=== PATIENT | male | born 1980 | race Caucasian/White ===

== ENCOUNTER 2016-10-12 10:21 | Emergency (ER) | payer OTHER ==
[~2016-10-12] VITALS: Ht 175.3 cm; Wt 83.9 kg
[~2016-10-12 10:21] MED LIST: CIPR500T78 PO; FAMO-119 PO; HYDR-2941 PO; OMEP20TA7 PO; PANT40TA2 PO; PHEN200T27 PO; SUCR1TAB36 PO; SULF1TAB35 PO; TRAM50TA2 PO
--- OUTSIDE RECORDS SUMMARY | 2016-10-12 10:29 | XMS REPORT | Continuity of Care Document ---
Author Author [facility] Organization [facility] Address Unknown Phone Unavailable Care Team Providers Care Marketing Manager Health Communications Name Role Phone NO, LOCAL PHYSICIAN PCP Unavailable Insurance Providers Payer Name Policy Number Subscriber Name Relationship R [id number] Hossein Mckeon 18 Self / Same As Patient Advance Directives Directive Response Recorded Date/Time Advance Directives No 08/01/14 3:48pm Health Care Power of General Office Associate No 08/01/14 3:48pm Organ Donor Yes 08/01/14 3:48pm Resuscitation Status Full Code 08/01/14 3:48pm Problems Medical Problems Problem Onset Date Status Lymphadenopathy, mesenteric Unknown Active Renal colic Unknown Active Dysuria Unknown Active Volume depletion Unknown Active Medications Medication Dose Route Sig Days/Qty Instructions Order Date Discontinued Date Status Hydrocodone Bit/Acetaminophen 1 Each PO NEEDED FOR PAIN 07/11/12 Discontinued Ciprofloxacin HCl 500 Mg PO TWICE A DAY 20 Qty 08/01/14 Active Phenazopyridine HCl 1 Each PO TID PRN PRN PAIN 14 Qty 08/01/14 Active Tramadol Hcl 50 Mg PO EVERY 4HRS PRN PAIN 14 Qty 08/01/14 Active Social History Social History Problem Response Recorded Date/Time Alcohol Use Denies Use 08/01/2014 3:48pm Recreational Drug Use No 08/01/2014 3:48pm Recent Foreign Travel No 08/01/2014 3:46pm Smoking Status Current Everyday Smoker 08/01/2014 3:48pm Query Response Start Date Stop Date Smoking Status Current Everyday Smoker Hospital Discharge Instructions No hospital discharge instructions. Plan of Care No plan of care. Functional Status No functional status results. Allergies, Adverse Reactions, Alerts Allergen Type Severity Reaction Status Last Updated Cephalexin Allergy Active 07/05/10 KETEC Allergy Mild Active 07/05/10 Immunizations No immunization records. Vital Signs Acute Vital Signs Vital Response Date/Time Temperature (Fahrenheit) 98.3 degrees F (97.6 - 99.5) Temperature (Calculated Celsius) 36.76105 degrees C (36.4 - 37.5) Temperature Source Tympanic Pulse Rate (adult) 78 bpm (60 - 90) Respiratory Rate 18 bpm (12 - 24) O2 Sat by Pulse Oximetry 99 % (88 - 100) Blood Pressure 138/96 mm Hg Pain Pain Intensity 0 Height (Feet) 6 feet Height (Calculated Centimeters) 182.046083 cm Weight (Pounds) 165 pounds Weight (Calculated Kilograms) 74.277533 kilograms Height 6 ft 0 in Weight 165 lb Body Mass Index 22.4 kg/m^2 Results Laboratory Results Test Name Result Units Flags Reference Collection Date/Time Result Date/ Time Comments White Blood Count 6.3 10^3/uL 4.3-11.0 08/01/2014 4:55pm 08/01/2014 5: 09pm Red Blood Count 4.53 10^6/uL 4.35-5.85 08/01/2014 4:55pm 08/01/2014 5: 09pm Hemoglobin 14.1 G/DL 13.3-17.7 08/01/2014 4:55pm 08/01/2014 5:09pm Hematocrit 41 % 40-54 08/01/2014 4:55pm 08/01/2014 5:09pm Mean Corpuscular Volume 90 FL 80-99 08/01/2014 4:55pm 08/01/2014 5: 09pm Mean Corpuscular Hemoglobin 31 PG 25-34 08/01/2014 4:55pm 08/01/2014 5: 09pm Mean Corpuscular Hemoglobin Concent 35 G/DL 32-36 08/01/2014 4:55pm 5:09pm Red Cell Distribution Width 12.2 % 10.0-14.5 08/01/2014 4:55pm 2013 5:09pm Platelet Count 224 10^3/uL 130-400 08/01/2014 4:55pm 08/01/2014 5:09pm Mean Platelet Volume 9.5 FL 7.4-10.4 08/01/2014 4:55pm 08/01/2014 5: 09pm Neutrophils (%) (Auto) 46 % 42-75 08/01/2014 4:55pm 08/01/2014 5:09pm Lymphocytes (%) (Auto) 42 % 12-44 08/01/2014 4:55pm 08/01/2014 5:09pm Monocytes (%) (Auto) 10 % 0-12 08/01/2014 4:55pm 08/01/2014 5:09pm Eosinophils (%) (Auto) 2 % 0-10 08/01/2014 4:55pm 08/01/2014 5:09pm Basophils (%) (Auto) 1 % 0-10 08/01/2014 4:55pm 08/01/2014 5:09pm Neutrophils # (Auto) 2.9 X 10^3 1.8-7.8 08/01/2014 4:55pm 08/01/2014 5: 09pm Lymphocytes # (Auto) 2.6 X 10^3 1.0-4.0 08/01/2014 4:55pm 08/01/2014 5: 09pm Monocytes # (Auto) 0.6 X 10^3 0.0-1.0 08/01/2014 4:55pm 08/01/2014 5: 09pm Eosinophils # (Auto) 0.1 10^3/uL 0.0-0.3 08/01/2014 4:55pm 08/01/2014 5 :09pm Basophils # (Auto) 0.1 10^3/uL 0.0-0.1 08/01/2014 4:55pm 08/01/2014 5: 09pm Urine Color YELLOW 08/01/2014 4:10pm 08/01/2014 4:26pm Urine Clarity CLEAR 08/01/2014 4:10pm 08/01/2014 4:26pm Urine pH 5 5-9 08/01/2014 4:10pm 08/01/2014 4:26pm Urine Specific Kimball 1.025 * 1.016-1.022 08/01/2014 4:10pm 2013 4:26pm Urine Protein 1+ * NEGATIVE 08/01/2014 4:1008/01/2014 4:26pm Urine Glucose (UA) NEGATIVE NEGATIVE 08/01/2014 4:10pm 08/01/2014 4: 26pm Urine RBC (Auto) 1+ * NEGATIVE 08/01/2014 4:10pm 08/01/2014 4:26pm Urine Ketones 1+ * NEGATIVE 08/01/2014 4:10pm 08/01/2014 4:26pm Urine Nitrite NEGATIVE NEGATIVE 08/01/2014 4:10pm 08/01/2014 4:26pm Urine Bilirubin 1+ * NEGATIVE 08/01/2014 4:10pm 08/01/2014 4:26pm ICTOTEST NEGATIVE Urine Urobilinogen 1 MG/DL NORMAL 08/01/2014 4:10pm 08/01/2014 4:26pm Urine Leukocyte Esterase 1+ * NEGATIVE 08/01/2014 4:10pm 08/01/2014 4: 26pm Urine RBC 2-5 /HPF * 08/01/2014 4:10pm 08/01/2014 4:26pm Urine WBC RARE /HPF 08/01/2014 4:10pm 08/01/2014 4:26pm Urine Bacteria NEGATIVE /HPF 08/01/2014 4:10pm 08/01/2014 4:26pm Urine Crystals NONE /LPF 08/01/2014 4:10pm 08/01/2014 4:26pm Urine Casts NONE /LPF 08/01/2014 4:10pm 08/01/2014 4:26pm Urine Mucus LARGE /LPF * 08/01/2014 4:10pm 08/01/2014 4:26pm Urine Culture Indicated NO 08/01/2014 4:1008/01/2014 4:26pm Sodium Level 142 MMOL/L 135-145 08/01/2014 4:55pm 08/01/2014 5:31pm Potassium Level 4.0 MMOL/L 3.6-5.0 08/01/2014 4:55pm 08/01/2014 5:31pm Chloride Level 107 MMOL/L 98-107 08/01/2014 4:55pm 08/01/2014 5:31pm Carbon Dioxide Level 24 MMOL/L 21-32 08/01/2014 4:55pm 08/01/2014 5: 31pm Blood Urea Nitrogen 11 MG/DL 7-18 08/01/2014 4:55pm 08/01/2014 5:31pm Creatinine 1.02 MG/DL 0.60-1.30 08/01/2014 4:55pm 08/01/2014 5:31pm BUN/Creatinine Ratio 08/01/2014 4:55pm 08/01/2014 5:31pm Estimat Glomerular Filtration Rate > 60 08/01/2014 4:55pm 2013 5:31pm GFR INTERPRETIVE DATA UNITS FOR ESTIMATED GFR (eGFR): mL/min/1.73 M2 REFERENCE RANGE FOR ESTIMATED GFR (eGFR) eGFR NORMAL eGFR >60 MODERATELY DECREASED eGFR 30-59 SEVERLY DECREASED eGFR 15-29 KIDNEY FAILURE <15 (OR DIALYSIS) Glucose Level 99 MG/DL 70-105 08/01/2014 4:55pm 08/01/2014 5:31pm Calcium Level 8.7 MG/DL 8.5-10.1 08/01/2014 4:55pm 08/01/2014 5:31pm Total Bilirubin 0.8 MG/DL 0.1-1.0 08/01/2014 4:55pm 08/01/2014 5:31pm Alkaline Phosphatase 74 U/L 40-136 08/01/2014 4:55pm 08/01/2014 5:31pm Aspartate Amino Transf (AST/SGOT) 25 U/L 5-34 08/01/2014 4:55pm 2013 5:31pm Alanine Aminotransferase (ALT/SGPT) 15 U/L 0-55 08/01/2014 4:55pm 08/01 5:31pm Total Protein 6.4 G/DL 6.4-8.2 08/01/2014 4:55pm 08/01/2014 5:31pm Albumin 3.9 G/DL 3.2-4.5 08/01/2014 4:55pm 08/01/2014 5:31pm Procedures No known history of procedures. Encounters Encounter Location Date/Time Departed Emergency Room [facility] 08/01/14 3:42pm Recent Diagnosis
--- NOTE | 2016-10-12 10:43 | ED EENT ---
History of Present Illness General Stated Complaint: SORE THROAT KNOTS IN NECK Source: patient Exam Limitations: no limitations History of Present Illness Time seen by provider: 10:41 Initial Comments To ER with "knots" on his neck and sore throat. He states that the knots have been there for 6-8 months at the angle of the jaw but they've not been tender until about 2 weeks ago. He has seen his regular doctor and was given a 10 day course of antibiotics which external med history shows to be Augmentin. Denies fevers. Does report pain with swallowing. Timing/Duration: gradual Severity: moderate Location: throat Prearrival Treatment: no prearrival treatment Associated Symptoms: denies symptoms Allergies and Home Medications Allergies Coded Allergies: telithromycin (Verified Allergy, Severe, ANAPHYLAXIS, 12/03/15) cephalexin (Unverified Allergy, Unknown, 06/04/15) Uncoded Allergies: KETEC (Allergy, Mild, 07/05/10) Home Medications Pantoprazole Sodium 40 Mg Tablet.dr #30 40 MG PO DAILY Prescribed by: ARTURO ROJAS on 12/29/15 1005 Sucralfate 1 Gm Tablet #30 1 GM PO TID Prescribed by: ARTURO ROJAS on 12/29/15 1004 Review of Systems Constitutional: see HPINo chills, No fever Eyes: No Symptoms Reported Ears: No Symptoms Reported Nose: no symptoms reported Throat: see HPI Respiratory: no symptoms reported Cardiovascular: no symptoms reported Musculoskeletal: no symptoms reported Past Scfjyjp-Pzisom-Aexqfk Hx Patient Social History Recent Foreign Travel: No Contact w/Someone Who Travel: No Surgeries HX Surgeries: Yes Surgeries: Gallbladder Respiratory Hx Respiratory Disorders: No Cardiovascular Hx Cardiac Disorders: No Neurological Hx Neurological Disorders: No Reproductive System Hx Reproductive Disorders: No Genitourinary Hx Genitourinary Disorders: No Gastrointestinal Hx Gastrointestinal Disorders: Yes Gastrointestinal Disorders: Abdominal Hernia Musculoskeletal Hx Musculoskeletal Disorders: No Endocrine Hx Endocrine Disorders: No HEENT HX ENT Disorders: No Cancer Hx Cancer: No Psychosocial Hx Psychiatric Problems: No Integumentary HX Skin/Integumentary Disorder: No Blood Transfusions Hx Blood Disorders: No Physical Exam Vital Signs Vital Sign - Last 12Hours 10/12/16 10:51 Temp 98.8 General Appearance: WD/WN no apparent distress Eyes: bilateral eye EOMI, bilateral eye PERRL, bilateral eye normal inspection Ears: bilateral ear TM normal, bilateral ear auricle normal, bilateral ear canal normal Mouth/Throat: normal mouth inspection other (tonsillar erythema, tonsillar enlargement with exudate) Neck: lymphadenopathy (R) lymphadenopathy (L) (tender submandibular lymph nodes bilaterally) Respiratory: no respiratory distress no accessory muscle use Gastrointestinal: normal bowel sounds non tender soft Neurologic/Psychiatric: alert normal mood/affect oriented x 3 Skin: normal color warm/dry Progress/Results/Core Measures Results/Orders Lab Results Laboratory Tests Test 10/12/16 10:40 10/12/16 10:45 Range/Units Group A Streptococcus Screen POSITIVE H NEGATIVE My Orders Orders-SANTIAGO WRIGHT APRN Rapid Strep A Screen (10/12/16 10:41) Monotest (10/12/16 10:41) Cmv Igg & Igm Ab (10/12/16 10:41) Saline Lock/Iv-Start (10/12/16 10:41) Cbc With Automated Diff (10/12/16 10:41) Dexamethasone Pf Injection (Decadron Pf (10/12/16 10:45) Ketorolac Injection (Toradol Injection) (10/12/16 10:45) Medications Given in ED Current Medications Medications Dose Ordered Sig/Ai Route Start Time Stop Time Status Last Admin Dose Admin Dexamethasone Sodium Phosphate 10 mg ONCE ONCE IM 10/12/16 10:45 10/12/16 10:46 DC 10/12/16 10:52 10 MG Ketorolac Tromethamine 30 mg ONCE ONCE IVP 10/12/16 10:45 10/12/16 10:46 DC 10/12/16 10:51 30 MG Vital Signs/I&O Vital Sign - Last 12Hours 10/12/16 10:51 Temp 98.8 Departure Communication Progress Notes Since he just finished a course of Augmentin and is allergic to macrolides and cephalosporin, drug of choice will be clindamycin. Impression Impression: Primary Impression: Streptococcal sore throat Disposition: HOME, SELF-CARE Condition: Stable Departure-Patient Inst. Decision time for Depature: 11:02 Referrals: YOGI RITCHIE MD (PCP/Family) Primary Care Physician Patient Instructions: Strep Throat (DC) Add. Discharge Instructions: 1. Tylenol and Motrin for pain and fevers 2. Return to ER for any concerns 3. Antibiotics as directed Scripts Lactobacillus Combo No.10 (Probiotic)1 Each Capsule1 Each PO TID #30 CAP Prov:SANTIAGO WRIGHT APRN 10/12/16 Clindamycin HCl 300 Mg [id number] Mg PO TID 10 Days Prov:SATNIAGO WRIGHT APRN 10/12/16 Work/School Note: Work Release Form Date Seen in the Emergency Department: Oct 12, 2016 Return to Work: Oct 15, 2016 Copy Copies To 1: YOGI RITCHIE MD, PETER J APRN Oct 12, 2016 10:43
[2016-10-12] MEDS ORDERED: KETOROLAC 30 MG/ML VIAL IVP ONE (10:45)
[2016-10-12] MEDS ORDERED: DEXAMETHASONE PF 10 MG/ML (DECADRON) VIAL IM ONE (10:45)
[2016-10-12 10:57] LABS: BASOPHILS % (AUTO) 0 % (0-10); EOSINOPHILS # (AUTO) 0.1 10^3/uL (0.0-0.3); EOSINOPHILS % (AUTO) 0 % (0-10); LYMPHOCYTES # (AUTO) 1.2 X 10^3 (1.0-4.0); LYMPHOCYTES % (AUTO) 7 % (12-44); MEAN CORPUSCULAR HEMOGLOBIN 31 PG (25-34); MEAN CORPUSCULAR HGB CONC 34 G/DL (32-36); MEAN CORPUSCULAR VOLUME 91 FL (80-99); MEAN PLATELET VOLUME 9.6 FL (7.4-10.4); MONOCYTES # (AUTO) 0.9 X 10^3 (0.0-1.0); MONOCYTES % (AUTO) 6 % (0-12); NEUTROPHILS # (AUTO) 14.5 X 10^3 (1.8-7.8); NEUTROPHILS % (AUTO) 87 % (42-75); PLATELET COUNT 215 10^3/uL (130-400); RED BLOOD COUNT 4.95 10^6/uL (4.35-5.85); RED CELL DISTRIBUTION WIDTH 12.6 % (10.0-14.5); WHITE BLOOD COUNT 16.7 10^3/uL (4.3-11.0)
[2016-10-12] MEDS ORDERED: LACT1CAP72 PO (11:07)
[2016-10-12] MEDS ORDERED: CLIN300C11 PO (11:07)
[2016-10-12 11:20] VITALS: BP 122/90
[2016-10-12 11:28] LABS: LYMPHOCYTES % (MANUAL) 8 %; NEUTROPHILS % (MANUAL) 88 %; REACTIVE LYMPHOCYTES 2 %
== END 2016-10-12 11:20 | disposition home or self-care (01) ==
LOC: EDUNIT# 10:21 → ER 10:25
DX: J02.0 Streptococcal pharyngitis (principal)
CPT/HCPCS: 36415; 85007; 85027; 86308; 86644; 86645; 87430; 96372; 96374

== ENCOUNTER 2016-12-07 18:59 | Emergency (ER) | payer OTHER ==
[~2016-12-07] VITALS: Ht 185.4 cm; Wt 83.9 kg
[~2016-12-07 18:59] MED LIST changes: +CLIN300C11 PO; +LACT1CAP72 PO
[2016-12-07] MEDS ORDERED: NS 100 ML (IVPB) BAG IV ONE (20:00)
[2016-12-07] MEDS ORDERED: IOHEXOL 350 MG/ML 100 ML (OMNIPAQUE 350) VIAL IV ONE (20:00)
[2016-12-07 20:11] LABS: BASOPHILS % (AUTO) 1 % (0-10); EOSINOPHILS # (AUTO) 0.1 10^3/uL (0.0-0.3); EOSINOPHILS % (AUTO) 2 % (0-10); LYMPHOCYTES # (AUTO) 2.5 X 10^3 (1.0-4.0); LYMPHOCYTES % (AUTO) 38 % (12-44); MEAN CORPUSCULAR HEMOGLOBIN 31 PG (25-34); MEAN CORPUSCULAR HGB CONC 34 G/DL (32-36); MEAN CORPUSCULAR VOLUME 91 FL (80-99); MEAN PLATELET VOLUME 9.2 FL (7.4-10.4); MONOCYTES # (AUTO) 0.6 X 10^3 (0.0-1.0); MONOCYTES % (AUTO) 9 % (0-12); NEUTROPHILS # (AUTO) 3.3 X 10^3 (1.8-7.8); NEUTROPHILS % (AUTO) 51 % (42-75); PLATELET COUNT 251 10^3/uL (130-400); RED BLOOD COUNT 4.62 10^6/uL (4.35-5.85); RED CELL DISTRIBUTION WIDTH 12.7 % (10.0-14.5); WHITE BLOOD COUNT 6.5 10^3/uL (4.3-11.0)
[2016-12-07 20:28] LABS: ALANINE AMINOTRANSFERASE 11 U/L (0-55); ALBUMIN 3.8 G/DL (3.2-4.5); ANION GAP 9 MMOL/L (5-14); ASPARTATE AMINO TRANSFERASE 17 U/L (5-34); BILIRUBIN,TOTAL 0.4 MG/DL (0.1-1.0); BLOOD UREA NITROGEN 9 MG/DL (7-18); BUN/CREATININE RATIO 8; CALCIUM 8.8 MG/DL (8.5-10.1); CARBON DIOXIDE 23 MMOL/L (21-32); CHLORIDE 110 MMOL/L (98-107); CREATININE SERUM 1.08 MG/DL (0.60-1.30); GFR ESTIMATED > 60; GLUCOSE 117 MG/DL (70-105); POTASSIUM 4.1 MMOL/L (3.6-5.0); SODIUM 142 MMOL/L (135-145); TOTAL PROTEIN 6.2 G/DL (6.4-8.2)
--- NOTE | 2016-12-07 20:36 | Diagnostic Imaging Report ---
PROCEDURE: CT neck soft tissue with contrast. TECHNIQUE: Multiple contiguous axial images were obtained through the neck after the administration of contrast. INDICATION: Neck swelling for 8 months. COMPARISONS: CT head and face performed concurrently. FINDINGS: No cervical lymphadenopathy. Thyroid and salivary glands are normal. No abnormal soft tissue mass or cystic lesion in the neck. There is prominence of the adenoids, which can be normal in a patient of this age. The oropharynx and hypopharynx are normal. Vocal folds are symmetric. No evidence of mass lesion in the floor of the mouth. The bilateral common carotid and internal carotid arteries are widely patent throughout the neck. Bilateral vertebral arteries are also patent in the neck. Left vertebral artery is dominant. Lung apices are clear. No endoluminal lesion in the trachea. Normal regional skeleton. IMPRESSION: 1. No cervical lymphadenopathy. 2. Prominence of the adenoids and bilateral palantine tonsils, likely reactive in nature. This can be further assessed with direct visualization. Dictated by: Dictated on workstation # [id number]
--- NOTE | 2016-12-07 20:39 | Diagnostic Imaging Report ---
PROCEDURE: CT head and maxillofacial without contrast. TECHNIQUE: Multiple contiguous axial images were obtained through the head and facial bones without the use of intravenous contrast. INDICATION: Headache and facial pain x8 months. COMPARISON: CT neck performed concurrently. FINDINGS: Head: No hyperdense hemorrhage or space-occupying mass. No hydrocephalus or midline shift. Munoz-white matter differentiation is preserved. Specifically, no territorial infarct. There is no crowding of the foramen magnum by the cerebellar tonsils. Paranasal sinuses and mastoid air cells are clear. No skull fracture. Face: Bilateral temporomandibular joints are normal in alignment. Zygomatic arches are intact. Paranasal sinuses and mastoid air cells are clear. Orbits are intact. Bilateral nasal bones are normal. Globes are symmetric. No inflammatory changes in the intraorbital fat. Please see soft tissue neck for details of the visualized portions of the upper neck. IMPRESSION: 1. Normal head. 2. Normal face. Dictated by: Dictated on workstation # [id number]
[2016-12-07] MEDS ORDERED: METH4TAB PO (20:48)
--- NOTE | 2016-12-07 20:48 | ED General ---
General Chief Complaint: General Problems/Pain Stated Complaint: SOB/RIB PAIN Nursing Triage Note: pt reports swollen neck lymph nodes on and off for eight months. reports today they are causing pain. pt also reports r sided rib pain and fatigue. pt reports he has been seen multiple times for the lymph node swelling and has been prescribed various antibiotics. Nursing Sepsis Screen: No Definite Risk Source of Information: Patient History of Present Illness Time Seen by Provider: 19:40 Initial Comments PT STATES HE HAS HAD SORE, SWOLLEN GLANDS IN HIS NECK/UNDER HIS JAWS ON BOTH SIDES FOR AT LEAST 8 MONTHS WAS SEEN AT [facility] HERE A MONTH AGO AND WAS TREATED WITH ANTIBIOTICS-? AUGMENTIN ? WAS SEEN HERE 10/12/16 FOR SAME AND DX WITH STREP PHARYNGITIS. RX FOR CLINDAMYCIN PT HAS NOT FOLLOWED UP WITH ANYONE SINCE THEN UNTIL TODAY. PT STATES HE HAS NOT SEEN HIS PCP, DR. RITCHIE, AT ANY TIME FOR ANYTHING FOR ALMOST A YEAR PT STATES HE HAS AN APPOINTMENT WITH DR. ANGELA, ENT, ON 12/21/16 FOR THIS PROBLEM PT DENIES SORE THROAT DENIES DIFFICULTY SWALLOWING PT DENIES ANY MOUTH OR DENTAL PROBLEMS NO FEVER/SWEATS / CHILLS NO COUGH ALSO C/O "SHARP PAINS UNDER MY RIBS, MORE ON THE LEFT" FOR A COUPLE OF WEEKS PAIN COMES AND GOES AND IS NOT PRESENT NOW OCCASIONALLY HAS STABBING PAINS IN HIS CHEST ,BUT NOT NOW OCCASIONALLY FEELS SHORT OF BREATH OFF AND ON, USUALLY AT NIGHT. STATES HE WILL GET A SHARP PAIN AND THEN IT FEELS LIKE HE CAN'T CATCH HIS BREATH. NO NAUSEA/VOMITING/DIARRHEA NO ABDOMINAL PAIN NO CHANGE IN APPETITE--EATING AND DRINKING WELL C/O FATIGUE. NONE OF THESE SYMPTOMS ARE ANY DIFFERENT IN ANY WAY TODAY HAS NOT TAKEN ANYTHING FOR PAIN PCP: DR. RITCHIE Allergies and Home Medications Allergies Coded Allergies: telithromycin (Verified Allergy, Severe, ANAPHYLAXIS, 12/03/15) cephalexin (Unverified Allergy, Unknown, 06/04/15) Uncoded Allergies: KETEC (Allergy, Mild, 07/05/10) Home Medications Methylprednisolone 4 Mg Tab.ds.pk, 4 MG PO UD, #1 Prescribed by: LORENZO CHRISTINE on 12/07/162047 Constitutional: see HPI, No chills, No diaphoresis, No dizziness, No fever, No weight gain, No weight loss, other (FATIGUE) EENTM: see HPI, No dental problems, No ear pain, No eye pain, No hoarseness, No mouth pain, No mouth swelling, No nose congestion, No throat pain, No throat swelling Respiratory: see HPI, No cough, No dyspnea on exertion, No orthopnea, short of breath, No stridor, No wheezing Cardiovascular: see HPI, chest pain, No edema, No palpitations, No syncope, No vascular heart diseas Gastrointestinal: no symptoms reported Genitourinary: no symptoms reported Musculoskeletal: see HPI, No back pain Skin: no symptoms reported Psychiatric/Neurological: No Symptoms Reported, Denies Headache, Denies Numbness, Denies Paresthesia, Denies Seizure, Denies Tingling, Denies Tremors, Denies Weakness Hematologic/Lymphatic: See HPI, Denies Easy Bleeding, Denies Easy Bruising, Swollen Glands Immunological/Allergic: no symptoms reported Past Oigacgg-Rsujjc-Gdssta Hx Patient Social History Alcohol Use: Rarely Uses Recreational Drug Use: No Smoking Status: Current Everyday Smoker (1/2 PPD) Type Used: Cigarettes Recent Foreign Travel: No Contact w/Someone Who Travel: No Recent Infectious Disease Expo: No Recent Hopitalizations: No Surgeries HX Surgeries: Yes Surgeries: Gallbladder Respiratory Hx Respiratory Disorders: No Cardiovascular Hx Cardiac Disorders: No Neurological Hx Neurological Disorders: No Reproductive System Hx Reproductive Disorders: No Genitourinary Hx Genitourinary Disorders: No Gastrointestinal Hx Gastrointestinal Disorders: Yes Gastrointestinal Disorders: Abdominal Hernia Musculoskeletal Hx Musculoskeletal Disorders: No Endocrine Hx Endocrine Disorders: No HEENT HX ENT Disorders: No Cancer Hx Cancer: No Psychosocial Hx Psychiatric Problems: No Integumentary HX Skin/Integumentary Disorder: No Blood Transfusions Hx Blood Disorders: No Physical Exam Vital Signs Vital Sign - Last 12Hours 12/07/16 12/07/16 19:08 21:00 Temp 98.9 Pulse 76 Resp 18 B/P (MAP) 127/87 Pulse Ox 97 Capillary Refill : Less Than 3 Seconds General Appearance: No Apparent Distress, WD/WN HEENT: PERRL/EOMI, TMs Normal, Normal ENT Inspection, Pharynx Normal Neck: Full Range of Motion, Supple, Other (SMALL, SOFT BILATERAL / SYMMETRICAL , SUBMANDIBULAR NODULES, SLIGHTLY TENDER. LESS THAN 1 CM IN SIZE ( AREA OF TONSILLAR TISSUE ) . NO OTHER MASSES OR ADENOPATHY NOTED. NO SWELLING TO PAROTID OR SUBMANDIBULAR GLANDS. ) Respiratory: Chest Non Tender, Normal Breath Sounds, No Accessory Muscle Use, No Respiratory Distress Cardiovascular: Regular Rate, Rhythm, No Edema, No Gallop, No JVD, No Murmur, Normal Peripheral Pulses Gastrointestinal: Normal Bowel Sounds, No Organomegaly, No Pulsatile Mass, Non Tender, Soft Back: Normal Inspection Extremity: Normal Capillary Refill, Normal Inspection, Normal Range of Motion, Non Tender, No Pedal Edema Neurologic/Psychiatric: Alert, Oriented x3, No Motor/Sensory Deficits, Normal Mood/Affect, aix administrator II-XII Norm as Tested Skin: Normal Color, Warm/Dry, No Rash Lymphatic: No Adenopathy Progress/Results/Core Measures Results/Orders Lab Results Laboratory Tests Test 12/07/16 20:03 Range/Units White Blood Count 6.5 4.3-11.0 10^3/uL Red Blood Count 4.62 4.35-5.85 10^6/uL Hemoglobin 14.3 13.3-17.7 G/DL Hematocrit 42 40-54 % Mean Corpuscular Volume 91 80-99 FL Mean Corpuscular Hemoglobin 31 25-34 PG Mean Corpuscular Hemoglobin Concent 34 32-36 G/DL Red Cell Distribution Width 12.7 10.0-14.5 % Platelet Count 251 130-400 10^3/uL Mean Platelet Volume 9.2 7.4-10.4 FL Neutrophils (%) (Auto) 51 42-75 % Lymphocytes (%) (Auto) 38 12-44 % Monocytes (%) (Auto) 9 0-12 % Eosinophils (%) (Auto) 2 0-10 % Basophils (%) (Auto) 1 0-10 % Neutrophils # (Auto) 3.3 1.8-7.8 X 10^3 Lymphocytes # (Auto) 2.5 1.0-4.0 X 10^3 Monocytes # (Auto) 0.6 0.0-1.0 X 10^3 Eosinophils # (Auto) 0.1 0.0-0.3 10^3/uL Basophils # (Auto) 0.0 0.0-0.1 10^3/uL Sodium Level 142 135-145 MMOL/L Potassium Level 4.1 3.6-5.0 MMOL/L Chloride Level 110 H 98-107 MMOL/L Carbon Dioxide Level 23 21-32 MMOL/L Anion Gap 9 5-14 MMOL/L Blood Urea Nitrogen 9 7-18 MG/DL Creatinine 1.08 0.60-1.30 MG/DL Estimat Glomerular Filtration Rate > 60 BUN/Creatinine Ratio 8 Glucose Level 117 H 70-105 MG/DL Calcium Level 8.8 8.5-10.1 MG/DL Total Bilirubin 0.4 0.1-1.0 MG/DL Aspartate Amino Transf (AST/SGOT) 17 5-34 U/L Alanine Aminotransferase (ALT/SGPT) 11 0-55 U/L Alkaline Phosphatase 83 40-136 U/L Total Protein 6.2 L 6.4-8.2 G/DL Albumin 3.8 3.2-4.5 G/DL TSH [place] Testing 1.96 0.35-4.94 UIU/ML Monoscreen NEGATIVE NEGATIVE Group A Streptococcus Screen NEGATIVE NEGATIVE My Orders Orders - LORENZO CHRISTINE DO Saline Lock/Iv-Start (12/07/16 19:38) Cbc With Automated Diff (12/07/16 19:38) Comprehensive Metabolic Panel (12/07/16 19:38) Monotest (12/07/16 19:38) Rapid Strep A Screen (12/07/16 19:38) Thyroid Analyzer (12/07/16 19:38) Ct Neck (Soft Tissue) W (12/07/16 19:53) Ct Head/Maxillofacial Wo (12/07/16 19:53) Iohexol Injection (Omnipaque 350 Mg/Ml 1 (12/07/16 20:00) Ns (Ivpb) (Sodium Chloride 0.9% Ivpb Bag (12/07/16 20:00) Medications Given in ED Current Medications Medications Dose Ordered Sig/Ai Route Start Time Stop Time Status Last Admin Dose Admin Iohexol 75 ml ONCE ONCE IV 12/07/16 20:00 12/07/16 20:01 DC 12/07/16 20:20 75 ML Sodium Chloride 100 ml ONCE ONCE IV 12/07/16 20:00 12/07/16 20:01 DC 12/07/16 20:20 80 ML Vital Signs/I&O Vital Sign - Last 12Hours 12/07/16 12/07/16 19:08 21:00 Temp 98.9 98.4 Pulse 76 70 Resp 18 20 B/P (MAP) 127/87 Pulse Ox 97 Blood Pressure Mean: [address] HEAD/MAXILLOFACIALS--NO ACUTE PROCESS CT NECK SOFT TISSUES--NO CERVICAL ADENOPATHY, MILDLY PROMINENT TONSILS AND ADENOIDS PER RADIOLOGIST REPORTS @ 2044 Reviewed: Reviewed by Me Departure Impression Impression: Primary Impression: MILD TONSILLAR HYPERTROPHY Disposition: HOME, SELF-CARE Condition: Stable Departure-Patient Inst. Referrals: YOGI RITCHIE MD (PCP/Family) Primary Care Physician Patient Instructions: Sore Throat, Adult (DC) Add. Discharge Instructions: LOTS OF CLEAR LIQUIDS TYLENOL AND MOTRIN NEEDED FOR PAIN FOLLOW UP WITH DR. ANGELA SCHEDULED All discharge instructions reviewed with patient and/or family. Voiced understanding. Scripts Methylprednisolone (Medrol) 4 Mg Tab.ds.pk 4 MG PO UD, #1 PKG Prov: LORENZO CHRISTINE DO 12/07/16 LORENZO CHRISTINE DO Dec 07, 2016 20:48
[2016-12-07 21:00] VITALS: BP 115/72
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
== END 2016-12-07 21:00 | disposition home or self-care (01) ==
LOC: EDUNIT# 18:59 → ER 19:00
DX: J35.3 Hypertrophy of tonsils with hypertrophy of adenoids (principal); F17.210 Nicotine dependence, cigarettes, uncomplicated
CPT/HCPCS: 36415; 70450; 70486; 70491; 80053; 84443; 85025; 86308; 87430

== ENCOUNTER 2019-10-08 05:30 | Outpatient (CLI) | payer OTHER ==
[~2019-10-08] VITALS: Ht 185.5 cm; Wt 81.8 kg
[~2019-10-08 05:30] MED LIST changes: +METH4TAB PO
[2019-10-11] MEDS ORDERED: HYDR-3816 PO (08:40)
== END 2019-10-08 15:29 | disposition home or self-care (01) ==
LOC: PREOP 05:30
PROVIDERS: ATTEND Surgery
DX: Z01.818 Encounter for other preprocedural examination (principal)

== ENCOUNTER → 2020-07-17 | Outpatient (CLI) | payer OTHER ==
[~2020-07-17] MED LIST changes: +HYDR-34 PO
--- NOTE | 2020-07-17 14:29 | Diagnostic Imaging Report ---
INDICATION: Shortness of breath. Time of exam 2:15 PM Correlation is made with prior chest from 02/08/2015. The heart size is normal. The pulmonary vascularity is unremarkable. The lungs are clear. No infiltrate, effusion or pneumothorax is detected. Impression: No acute cardiopulmonary process is detected. Dictated by: Dictated on workstation # [id number]
== END ==
LOC: RAD 13:52
PROVIDERS: ATTEND Family Medicine
DX: R06.02 Shortness of breath (principal); R06.00 Dyspnea, unspecified
CPT/HCPCS: 71046

== ENCOUNTER → 2020-07-23 | Outpatient (CLI) | payer OTHER ==
[~2020-07-23] MED LIST changes: +RT-ALBUTEROL SULF 2.5 MG/3 ML PRE-MIX VIAL INH ONE
== END ==
LOC: RT 15:30
PROVIDERS: ATTEND Family Medicine
DX: R06.00 Dyspnea, unspecified (principal)
CPT/HCPCS: 94060; 94726; 94729

== ENCOUNTER 2020-08-04 10:56 | Emergency (ER) | payer OTHER ==
[~2020-08-04 10:56] MED LIST changes: -RT-ALBUTEROL SULF 2.5 MG/3 ML PRE-MIX VIAL INH ONE
== END 2020-08-04 11:47 | disposition left against medical advice (07) ==
LOC: EDUNIT# 10:56 → ER 10:58
DX: R06.02 Shortness of breath (principal); R10.9 Unspecified abdominal pain

== ENCOUNTER → 2020-10-16 | Outpatient (CLI) | payer OTHER ==
[~2020-10-16] MED LIST changes: +CATHETER FLUSH 10 ML SYR IV PRN; -CLIN300C11 PO; +CLIN300C12 PO; +HOLD METFORMIN - RECEIVED CONTRAST 20 ML VIAL IV SCH; +IOHEXOL 350 MG/ML 100 ML (OMNIPAQUE 350) VIAL IV ONE; +NS 100 ML (IVPB) BAG IV ONE
--- NOTE | 2020-10-16 10:08 | Diagnostic Imaging Report ---
PROCEDURE: CT chest with contrast only. TECHNIQUE: Multiple contiguous axial images were obtained through the chest after administration of intravenous contrast. Auto Exposure Controls were utilized during the CT exam to meet ALARA standards for radiation dose reduction. INDICATION: Cough, shortness of air, fatigue. FINDINGS: The lungs are clear. No lung mass or thoracic adenopathy. No chest effusion. No chest wall pathology. No bronchiectasis, blebs, bullous disease or air cysts. The heart and pericardium unremarkable. The thoracic aorta is patent and nonaneurysmal. Central pulmonary arterial branches normal in caliber and well opacified. The visualized upper abdomen is unremarkable. IMPRESSION: Normal CT chest. Dictated by: Dictated on workstation # [id number]
== END ==
LOC: RAD 09:15
PROVIDERS: ATTEND Nurse Practitioner Family
DX: R05 Cough (principal); R06.02 Shortness of breath; R53.83 Other fatigue
CPT/HCPCS: 71260

== ENCOUNTER → 2021-05-12 | Outpatient (CLI) | payer OTHER ==
[~2021-05-12] MED LIST changes: -CATHETER FLUSH 10 ML SYR IV PRN; -HOLD METFORMIN - RECEIVED CONTRAST 20 ML VIAL IV SCH; -IOHEXOL 350 MG/ML 100 ML (OMNIPAQUE 350) VIAL IV ONE; -NS 100 ML (IVPB) BAG IV ONE; -SULF1TAB35 PO; +SULF1TAB38 PO
--- NOTE | 2021-05-12 12:32 | Diagnostic Imaging Report ---
INDICATION: Severe cough, 2 weeks post COVID. TECHNIQUE: Two view chest 11:38 AM CORRELATION STUDY: 07/17/2020 FINDINGS: The heart size, mediastinal configuration and pulmonary vasculature are within normal limits. Patchy bilateral pulmonary infiltrates opacities noted about both lung bases left greater than right. Appears to be most pronounced posteriorly. No significant effusion. Visualized osseous structures are unremarkable. IMPRESSION: 1. Bilateral lower lobe pneumonia left greater than right. Follow-up imaging to resolution recommended. Findings are adversely changed from prior. Dictated by: Dictated on workstation # [id number]
== END ==
LOC: RAD 10:59
PROVIDERS: ATTEND Family Medicine
DX: J18.9 Pneumonia, unspecified organism (principal); Z86.16 Personal history of COVID-19
CPT/HCPCS: 71046

== ENCOUNTER 2021-05-18 12:37 | Emergency (ER) | payer SELFPAY ==
[~2021-05-18] VITALS: Ht 182.8 cm; Wt 81.6 kg
--- NOTE | 2021-05-18 13:30 | ED Respiratory ---
General Chief Complaint: COVID19 Suspect/Confirmed Stated Complaint: POST COVID - HEART RATE 48 - LOW 02 - Nursing Triage Note: PT AMB TO RM 9 WITH COMPLAINT OF LOW HEART RATE AND LOW O2. STATES HE TESTED POSITIVE FOR COVID ON April. WENT TO DR RITCHIE LAST WEEK AND DIAGNOSED WITH DOUBLE PNEUMONIA AND RECEIVED ANTIBIOTICS AND STEROIDS. REPORTS HR BEING LOW 43 AT HOME, Source: patient Exam Limitations: no limitations History of Present Illness Date Seen by Provider: May 18, 2021 Time Seen by Provider: 13:30 Allergies and Home Medications Allergies Coded Allergies: telithromycin (Verified Allergy, Severe, ANAPHYLAXIS, 12/03/15) cephalexin (Unverified Allergy, Unknown, 06/04/15) Patient Home Medication List Home Medication List Reviewed: Yes Hydrocodone Bit/Acetaminophen (HYDROcodone/APAP 7.5/325 TAB) 1 Each Tablet, 1-2 TAB PO Q4H Prescribed by: MERLE ESPOSITO on 10/11/19 0840 Past Iqfimtr-Sjcidt-Dsoxvs Hx Patient Social History Tobacco Use?: No Smokeless Tobacco Frequency: Current Everyday User Use of E-Cig and/or Vaping dev: No Substance use?: No Alcohol Use?: No Pt feels they are or have been: No Seasonal Allergies Seasonal Allergies: Yes Past Medical History Surgeries: Yes Gallbladder Respiratory: No Cardiac: No Neurological: No Reproductive Disorders: No Genitourinary: No Gastrointestinal: Yes Abdominal Hernia, Irritable Bowel Musculoskeletal: No Endocrine: No HEENT: No Cancer: No Psychosocial: No Integumentary: No Blood Disorders: No Physical Exam Vital Signs - First Documented 05/18/21 13:18 Temp 36.6 Pulse 78 Resp 18 B/P (MAP) 131/97 (108) Pulse Ox 96 O2 Delivery Room Air Capillary Refill : Less Than 3 Seconds Height: 6'1.00" Weight: 185lbs. 0.0oz. 83.677714sj; 24.00 BMI Method:Stated Focused Exam Lactate Level 05/18/21 13:10: Lactic Acid Level 1.27 Lactic Acid Level Laboratory Tests Test 05/18/21 13:10 Lactic Acid Level 1.27 MMOL/L (0.50-2.00) Progress/Results/Core Measures Suspected Sepsis SIRS Temperature: Pulse: 78 Respiratory Rate: 18 Laboratory Tests 05/18/21 13:10: White Blood Count 11.3H Blood Pressure 131 /97 Mean: 108 05/18/21 13:10: Lactic Acid Level 1.27 Laboratory Tests 05/18/21 13:10: Creatinine 1.00, INR Comment 0.9, Platelet Count 496H, Total Bilirubin 0.8 Results/Orders Lab Results Laboratory Tests Test 05/18/21 13:10 Range/Units White Blood Count 11.3 H 4.3-11.0 10^3/uL Red Blood Count 5.26 4.30-5.52 10^6/uL Hemoglobin 15.8 13.3-17.7 g/dL Hematocrit 48 40-54 % Mean Corpuscular Volume 91 80-99 fL Mean Corpuscular Hemoglobin 30 25-34 pg Mean Corpuscular Hemoglobin Concent 33 32-36 g/dL Red Cell Distribution Width 11.8 10.0-14.5 % Platelet Count 496 H 130-400 10^3/uL Mean Platelet Volume 9.1 9.0-12.2 fL Immature Granulocyte % (Auto) 6 % Neutrophils (%) (Auto) 71 42-75 % Lymphocytes (%) (Auto) 17 12-44 % Monocytes (%) (Auto) 6 0-12 % Eosinophils (%) (Auto) 0 0-10 % Basophils (%) (Auto) 0 0-10 % Neutrophils # (Auto) 8.0 H 1.8-7.8 10^3/uL Lymphocytes # (Auto) 2.0 1.0-4.0 10^3/uL Monocytes # (Auto) 0.7 0.0-1.0 10^3/uL Eosinophils # (Auto) 0.0 0.0-0.3 10^3/uL Basophils # (Auto) 0.0 0.0-0.1 10^3/uL Immature Granulocyte # (Auto) 0.6 H 0.0-0.1 10^3/uL Neutrophils % (Manual) 73 % Lymphocytes % (Manual) 21 % Monocytes % (Manual) 6 % Blood Morphology Comment NORMAL Prothrombin Time 12.8 12.2-14.7 SEC INR Comment 0.9 0.8-1.4 Activated Partial Thromboplast Time 24 24-35 SEC D-Dimer 1.90 H 0.00-0.49 UG/ML Sodium Level 139 135-145 MMOL/L Potassium Level 4.7 3.6-5.0 MMOL/L Chloride Level 101 98-107 MMOL/L Carbon Dioxide Level 30 21-32 MMOL/L Anion Gap 8 5-14 MMOL/L Blood Urea Nitrogen 16 7-18 MG/DL Creatinine 1.00 0.60-1.30 MG/DL Estimat Glomerular Filtration Rate 83 BUN/Creatinine Ratio 16 Glucose Level 98 70-105 MG/DL Lactic Acid Level 1.27 0.50-2.00 MMOL/L Calcium Level 9.6 8.5-10.1 MG/DL Corrected Calcium 9.8 8.5-10.1 MG/DL Total Bilirubin 0.8 0.1-1.0 MG/DL Aspartate Amino Transf (AST/SGOT) 33 5-34 U/L Alanine Aminotransferase (ALT/SGPT) 51 0-55 U/L Alkaline Phosphatase 91 40-136 U/L Total Protein 6.8 6.4-8.2 GM/DL Albumin 3.7 3.2-4.5 GM/DL My Orders Orders - RAGHAVENDRA WILD APRN Ekg Tracing (05/18/21 13:26) Cbc With Automated Diff (05/18/21 13:27) Comprehensive Metabolic Panel (05/18/21 13:27) Blood Culture (05/18/21 13:27) Protime With Inr (05/18/21 13:27) Partial Thromboplastin Time (05/18/21 13:27) Ed Iv/Invasive Line Start (05/18/21 13:27) Vital Signs Adult Sepsis Patie Q15M (05/18/21 13:27) O2 (05/18/21 13:27) Remove Rings In Anticipation O (05/18/21 13:27) Lactic Acid Analyzer (05/18/21 13:27) Fibrin Degradation Products (05/18/21 13:27) Manual Differential (05/18/21 13:10) Ct Angio Chest W (05/18/21 13:56) Iohexol Injection (Omnipaque 350 Mg/Ml 1 (05/18/21 14:15) Received Contrast (Hold Metformin- Contr (05/18/21 14:15) Ns (Ivpb) (Sodium Chloride 0.9% Ivpb Bag (05/18/21 14:15) Enoxaparin Injection (Lovenox Injection) (05/18/21 14:45) Medications Given in ED Current Medications Medications Dose Ordered Sig/Ai Route Start Time Stop Time Status Last Admin Dose Admin Enoxaparin Sodium 120 mg ONCE ONCE SC 05/18/21 14:45 05/18/21 14:46 DC 05/18/21 15:47 120 MG Iohexol 75 ml ONCE ONCE IV 05/18/21 14:15 05/18/21 14:20 DC 05/18/21 14:26 75 ML Sodium Chloride 100 ml ONCE ONCE IV 05/18/21 14:15 05/18/21 14:20 DC 05/18/21 14:27 100 ML Vital Signs/I&O 05/18/21 05/18/21 13:18 15:56 Temp 36.6 Pulse 78 68 Resp 18 11 B/P (MAP) 131/97 (108) 117/86 Pulse Ox 96 95 O2 Delivery Room Air Room Air Capillary Refill : Less Than 3 Seconds Blood Pressure Mean: 108 ECG Initial ECG Impression Date: May 18, 2021 Initial ECG Impression Time: 14:02 Initial ECG Rate: 68 Initial ECG Rhythm: Normal Sinus Initial ECG Intervals: Normal Initial ECG Impression: Normal Initial ECG Comparisson: No Previous ECG Available Departure Impression Primary Impression: Pneumonia Disposition: 01 HOME, SELF-CARE Condition: Improved Departure-Patient Inst. Decision time for Depature: 15:44 Referrals: YOGI RITCHIE MD (PCP/Family) Primary Care Physician Patient Instructions: Pneumonia, Adult (DC) Add. Discharge Instructions: Plan: 1. Continue antibiotics as directed and complete full course. 2. Use your incentive spirometer every 2 hours while awake. 3. Call number on outpatient order to schedule your ultrasound and holter monitor. 4. Follow up with Dr. Ritchie later this week. 5. Return to hospital for new, concerning, or worsening symptoms. All discharge instructions reviewed with patient and/or family. Voiced understanding. RAGHAVENDRA WILD SHIPPING AND RECEIVING May 18, 2021 13:30
[2021-05-18 13:35] LABS: BASOPHILS % (AUTO) 0 % (0-10); EOSINOPHILS % (AUTO) 0 % (0-10); HEMATOCRIT 48 % (40-54); HEMOGLOBIN 15.8 g/dL (13.3-17.7); LYMPHOCYTES % (AUTO) 17 % (12-44); MEAN CORPUSCULAR HEMOGLOBIN 30 pg (25-34); MEAN CORPUSCULAR HGB CONC 33 g/dL (32-36); MEAN CORPUSCULAR VOLUME 91 fL (80-99); MEAN PLATELET VOLUME 9.1 fL (9.0-12.2); MONOCYTES # (AUTO) 0.7 10^3/uL (0.0-1.0); MONOCYTES % (AUTO) 6 % (0-12); NEUTROPHILS % (AUTO) 71 % (42-75); PLATELET COUNT 496 10^3/uL (130-400); WHITE BLOOD COUNT 11.3 10^3/uL (4.3-11.0)
[2021-05-18 13:43] LABS: FIBRIN DEGRADATION PRODUCTS 1.9 UG/ML (0.00-0.49); INR 0.9 (0.8-1.4); PROTHROMBIN TIME PATIENT 12.8 SEC (12.2-14.7)
[2021-05-18 13:44] LABS: ALBUMIN 3.7 GM/DL (3.2-4.5)
[2021-05-18 13:45] LABS: POTASSIUM 4.7 MMOL/L (3.6-5.0)
[2021-05-18 13:46] LABS: CALCIUM 9.6 MG/DL (8.5-10.1)
[2021-05-18 13:47] LABS: TOTAL PROTEIN 6.8 GM/DL (6.4-8.2)
[2021-05-18 13:49] LABS: BILIRUBIN,TOTAL 0.8 MG/DL (0.1-1.0)
[2021-05-18 14:01] LABS: LYMPHOCYTES % (MANUAL) 21 %; MONOCYTES % (MANUAL) 6 %; NEUTROPHILS % (MANUAL) 73 %
[2021-05-18 14:02] LABS: RBC MORPH NORMAL
[2021-05-18] MEDS ORDERED: NS 100 ML (IVPB) BAG IV ONE (14:15)
[2021-05-18] MEDS ORDERED: HOLD METFORMIN - RECEIVED CONTRAST 20 ML VIAL IV SCH (14:15)
[2021-05-18] MEDS ORDERED: IOHEXOL 350 MG/ML 100 ML (OMNIPAQUE 350) VIAL IV ONE (14:15)
--- NOTE | 2021-05-18 14:29 | Diagnostic Imaging Report ---
PROCEDURE: CT angiography of the chest with contrast. TECHNIQUE: Multiple contiguous axial images were obtained through the chest after uneventful bolus administration of intravenous contrast. 3D reconstructed CTA MIP acquisitions were also performed. Auto Exposure Controls were utilized during the CT exam to meet ALARA standards for radiation dose reduction. INDICATION: Bradycardia. Hypoxia. Covid positive. Elevated D-dimer. COMPARISON: 10/16/2020. FINDINGS: This helical CT pulmonary angiogram is diagnostic to the subsegmental level branches of the pulmonary artery and demonstrates no pulmonary emboli. The heart and great vessels are unremarkable. There is no pericardial effusion. There is no axillary, mediastinal, or hilar adenopathy. Small amount of opacities are seen in the dependent lungs bilaterally. No central endobronchial obstructing lesions. No pulmonary mass. No pleural effusion or pneumothorax. Osseous structures appear normal. Limited views of the upper abdomen are unremarkable. IMPRESSION: 1. No acute pulmonary embolus. 2. Small amount of opacities in the dependent lungs bilaterally, likely representing the patient's history of Covid infection. No pleural effusion or mass. Dictated by: Dictated on workstation # [id number]
[2021-05-18] MEDS ORDERED: ENOXAPARIN 60 MG/0.6 ML (LOVENOX) SYR SC ONE (14:45)
[2021-05-18 15:56] VITALS: BP 117/86
== END 2021-05-18 15:56 | disposition home or self-care (01) ==
LOC: EDUNIT# 12:37 → ER 12:42
DX: J18.9 Pneumonia, unspecified organism (principal); F17.200 Nicotine dependence, unspecified, uncomplicated; Z86.16 Personal history of COVID-19
CPT/HCPCS: 36415; 71275; 80053; 83605; 85007; 85027; 85379; 85610; 85730; 87040; 93005

== ENCOUNTER → 2021-05-19 | Outpatient (CLI) | payer SELFPAY | LOC: CARD 11:49 | PROVIDERS: ATTEND Emergency Medicine | DX: R00.1 Bradycardia, unspecified (principal); R10.12 Left upper quadrant pain; R79.1 Abnormal coagulation profile; Z86.16 Personal history of COVID-19 | CPT/HCPCS: 93225; 93226 ==

== ENCOUNTER 2021-06-03 09:52 | Outpatient (CLI) | payer OTHER | END 2021-06-03 10:15 | LOC: SLEEP 09:52 | PROVIDERS: ATTEND Family Medicine | DX: G47.33 Obstructive sleep apnea (adult) (pediatric) (principal) | CPT/HCPCS: G0399 ==

== ENCOUNTER → 2021-06-26 | Outpatient (CLI) | payer SELFPAY | LOC: LABNPT 08:00 | PROVIDERS: ATTEND Family Medicine | DX: Z01.812 Encounter for preprocedural laboratory examination (principal); Z20.822 Contact with and (suspected) exposure to COVID-19 | CPT/HCPCS: 87635 ==

== ENCOUNTER 2021-06-27 19:49 | Outpatient (CLI) | payer OTHER | END 2021-06-28 07:04 | disposition home or self-care (01) | LOC: SLEEP 19:49 | PROVIDERS: ATTEND Family Medicine | DX: G47.33 Obstructive sleep apnea (adult) (pediatric) (principal) | CPT/HCPCS: 87635; 95811 ==

== ENCOUNTER 2021-07-07 13:39 | Emergency (ER) | payer OTHER ==
[~2021-07-07] VITALS: Ht 182 cm; Wt 84.0 kg
[~2021-07-07 13:39] MED LIST changes: +CLIN-144 PO; -CLIN300C12 PO
--- OUTSIDE RECORDS SUMMARY | 2021-07-07 13:45 | XMS REPORT | Clinical Summary ---
Author Author [facility] Organization [facility] Address Unknown Phone Unavailable Care Team Providers Care Car Filler Name Role Phone Jarett Markham MD PCP Source Comments Some departments are not documenting in the electronic medical record. If you d o not see the information that you expected, contact Release of Information in [facility] [employer] [place] Information Management department at [phone] for further assistan ce in locating additional records.[facility] Allergies Comments Active Allergy Reactions Severity Noted Date Cephalexin NAUSEA ONLY Low 12/26/2020 Medications End Date Status Medication Sig Dispensed Refills Start Date Active albuterol sulfate (PROAIR Inhale 2 0 HFA) 90 mcg/actuation HFA puffs by aerosol inhaler mouth into the lungs every 6 hours as needed for Wheezing or Shortness of Breath. Shake well before use. Active Problems Problem Noted Date Industrial fumes exposure 01/14/2021 Surgical History Surgery Date Site/Laterality Comments GALLBLADDER SURGERY ABDOMINAL HERNIA REPAIR Medical History Medical History Date Comments Bronchitis Family History Medical History Relation Name Comments Coronary Artery Disease Maternal Grandfather Relation Name Status Comments Maternal Grandfather Social History Date Tobacco Use Types Packs/Day Years Used Quit: 09/2018 Former Smoker Cigarettes 0.5 10 Smokeless Tobacco: Chew Current User Tobacco Cessation: Ready to Quit: Yes; C ounseling Given: Yes Comments Alcohol Use Standard Drinks/Week Yes 0 (1 standard drink = 0.6 o z pure alcohol) Sex Assigned at Date Recorded Not on file Last Filed Vital Signs Reading Time Taken Comments Vital Sign 133/71 12/26/2020 12:39 PM CDT Blood Pressure 75 12/26/2020 12:39 PM CDT Pulse 36.7 C (98.1 F) 12/26/2020 12:39 PM CDT Temperature 20 12/26/2020 12:39 PM CDT Respiratory Rate 100% 12/26/2020 12:39 PM CDT Oxygen Saturation - - Inhaled Oxygen Concentration 80.3 kg (177 lb 1.6 oz) 12/26/2020 12:39 PM CDT Weight 180.3 cm (5' 11") 12/26/2020 12:39 PM CDT Height 24.7 12/26/2020 12:39 PM CDT Body Mass Index Plan of Treatment Health Maintenance Due Date Last Done Comments HIV SCREENING 1996 DTAP/TDAP VACCINES (1 - 1999 Tdap) HEPATITIS C SCREENING 1999 PHYSICAL (COMPREHENSIVE) 1999 EXAM INFLUENZA VACCINE 04/12/2021 Results Not on filefrom Last 3 Months Insurance Type Payer Benefit Subscriber ID Effective Phone Address Plan / Dates Group Indemnity WORKERS COMP GENERIC [id number] 2020- WORK COMP Present Advance Directives Patient Restaurant Cook Explanation Type Date Recorded Advance Directive/DPOA
--- NOTE | 2021-07-07 13:58 | ED Chest Pain ---
General Chief Complaint: Chest Pain Stated Complaint: CHEST PAIN Source: patient Exam Limitations: no limitations (SANTIAGO WRIGHT APRN) History of Present Illness Date Seen by Provider: Jul 07, 2021 Time Seen by Provider: 13:56 Initial Comments To ER with reports of chest pain that began about 45 minutes ago while they were grocery shopping. He has tingling in both hands left greater than right and both legs. He went to the bathroom and noticed both of his thighs and his hands were purple. He has intermittent hypoxia where his oxygen will drop to 84% he states. They are working on getting him oxygen at home. He has a history of Covid 3 months ago and has had "nothing but troubles" since then. He denies feeling anxious. Timing/Duration: 1-3 hours, changing over time Severity/Quality: moderate Radiation: no radiation Activities at Onset: none ASA po CITY DRIVER: No NTG SL CITY DRIVER: No Associated Symptoms: shortness of breath (SANTIAGO WRIGHT APRN) Allergies and Home Medications Allergies Coded Allergies: telithromycin (Verified Allergy, Severe, ANAPHYLAXIS, 12/03/15) cephalexin (Unverified Allergy, Unknown, 06/04/15) Patient Home Medication List Home Medication List Reviewed: Yes (SANTIAGO WRIGHT APRN) Hydrocodone Bit/Acetaminophen (HYDROcodone/APAP 7.5/325 TAB) 1 Each Tablet, 1-2 TAB PO Q4H Prescribed by: MERLE ESPOSITO on 10/11/19 0840 Review of Systems Review of Systems Constitutional: see HPI EENTM: No Symptoms Reported Respiratory: No Symptoms Reported Cardiovascular: See HPI, Chest Pain Gastrointestinal: No Symptoms Reported Genitourinary: No Symptoms Reported Musculoskeletal: no symptoms reported Skin: no symptoms reported Psychiatric/Neurological: No Symptoms Reported Endocrine: No Symptoms Reported Hematologic/Lymphatic: No Symptoms Reported (SANTIAGO WRIGHT APRN) Past Gaxvirc-Vepaiz-Mrtwnm Hx Seasonal Allergies Seasonal Allergies: Yes (SANTIAGO WRIGHT APRN) Past Medical History Surgeries: Yes Gallbladder Respiratory: No Cardiac: No Neurological: No Reproductive Disorders: No Genitourinary: No Gastrointestinal: Yes Abdominal Hernia, Irritable Bowel Musculoskeletal: No Endocrine: No HEENT: No Cancer: No Psychosocial: No Integumentary: No Blood Disorders: No (SANTIAGO WRIGHT APRN) Physical Exam Vital Signs Vital Signs - First Documented 07/07/21 13:45 Temp 36.9 Pulse 85 Resp 20 B/P (MAP) 158/95 (116) Pulse Ox 99 O2 Delivery Room Air (SPIKE REILLY MD) Vital Signs Capillary Refill : (SANTIAGO WRIGHT APRN) Height, Weight, BMI Height: 6'1.00" Weight: 185lbs. 0.0oz. [id number]; 24.00 BMI Method:Stated General Appearance: No Apparent Distress, WD/WN, Other (Alert and oriented no distress oxygen saturation 100% on room air.) Neck: Full Range of Motion, Normal Inspection Respiratory: No Accessory Muscle Use, No Respiratory Distress Cardiovascular: Regular Rate, Rhythm, Normal Peripheral Pulses Gastrointestinal: Normal Bowel Sounds, Non Tender, Soft Extremity: Normal Capillary Refill, Normal Inspection Neurologic/Psychiatric: Alert, Oriented x3 Skin: Normal Color, Warm/Dry (SANTIAGO WRIGHT APRN) Progress/Results/Core Measures Results/Orders Lab Results Laboratory Tests Test 07/07/21 13:50 Range/Units White Blood Count 6.5 4.3-11.0 10^3/uL Red Blood Count 4.54 4.30-5.52 10^6/uL Hemoglobin 13.9 13.3-17.7 g/dL Hematocrit 42 40-54 % Mean Corpuscular Volume 91 80-99 fL Mean Corpuscular Hemoglobin 31 25-34 pg Mean Corpuscular Hemoglobin Concent 34 32-36 g/dL Red Cell Distribution Width 12.7 10.0-14.5 % Platelet Count 277 130-400 10^3/uL Mean Platelet Volume 9.3 9.0-12.2 fL Immature Granulocyte % (Auto) 0 % Neutrophils (%) (Auto) 64 42-75 % Lymphocytes (%) (Auto) 28 12-44 % Monocytes (%) (Auto) 7 0-12 % Eosinophils (%) (Auto) 1 0-10 % Basophils (%) (Auto) 0 0-10 % Neutrophils # (Auto) 4.2 1.8-7.8 X 10^3 Lymphocytes # (Auto) 1.8 1.0-4.0 X 10^3 Monocytes # (Auto) 0.5 0.0-1.0 X 10^3 Eosinophils # (Auto) 0.1 0.0-0.3 10^3/uL Basophils # (Auto) 0.0 0.0-0.1 10^3/uL Immature Granulocyte # (Auto) 0.0 0.0-0.1 10^3/uL Prothrombin Time 13.3 12.2-14.7 SEC INR Comment 1.0 0.8-1.4 Activated Partial Thromboplast Time 28 24-35 SEC D-Dimer < 0.27 0.00-0.49 UG/ML Sodium Level 140 135-145 MMOL/L Potassium Level 4.2 3.6-5.0 MMOL/L Chloride Level 106 98-107 MMOL/L Carbon Dioxide Level 24 21-32 MMOL/L Anion Gap 10 5-14 MMOL/L Blood Urea Nitrogen 9 7-18 MG/DL Creatinine 1.11 0.60-1.30 MG/DL Estimat Glomerular Filtration Rate 74 BUN/Creatinine Ratio 8 Glucose Level 107 H 70-105 MG/DL Calcium Level 9.6 8.5-10.1 MG/DL Corrected Calcium 9.5 8.5-10.1 MG/DL Magnesium Level 1.8 1.6-2.4 MG/DL Total Bilirubin 0.8 0.1-1.0 MG/DL Aspartate Amino Transf (AST/SGOT) 16 5-34 U/L Alanine Aminotransferase (ALT/SGPT) 12 0-55 U/L Alkaline Phosphatase 89 40-136 U/L Myoglobin 40.9 10.0-92.0 NG/ML Troponin I < 0.028 <0.028 NG/ML C-Reactive Protein High Sensitivity 0.16 0.00-0.50 MG/DL Total Protein 6.8 6.4-8.2 GM/DL Albumin 4.1 3.2-4.5 GM/DL Procalcitonin 0.02 <0.10 NG/ML (SPIKE REILLY MD) My Orders Orders - SPIKE REILLY MD Cbc With Automated Diff (07/07/21 13:45) Magnesium (07/07/21 13:45) Chest 1 View, Ap/Pa Only (07/07/21 13:45) Ekg Tracing (07/07/21 13:45) Comprehensive Metabolic Panel (07/07/21 13:45) Myoglobin Serum (07/07/21 13:45) Protime With Inr (07/07/21 13:45) Partial Thromboplastin Time (07/07/21 13:45) O2 (07/07/21 13:45) Monitor-Rhythm Ecg Trace Only (07/07/21 13:45) Ed Iv/Invasive Line Start (07/07/21 13:45) Troponin I (07/07/21 13:45) (SPIKE REILLY MD) Vital Signs/I&O 07/07/21 07/07/21 13:45 15:12 Temp 36.9 36.9 Pulse 85 85 Resp 20 18 B/P (MAP) 158/95 (116) 121/82 Pulse Ox 99 99 O2 Delivery Room Air Room Air (SPIKE REILLY MD) Departure Communication (Admissions) EKG at 81 sinus rhythm normal intervals no ectopy no ST segment change does have inferior S1Q3T3 pattern. (SANTIAGO WRIGHT APRN) Impression Primary Impression: Chest pain Additional Impression: Post-COVID syndrome Disposition: HOME, SELF-CARE Condition: Stable Departure-Patient Inst. Decision time for Depature: 14:40 (SANTIAGO WRIGHT APRN) Referrals: YOGI RITCHIE MD (PCP/Family) Primary Care Physician Patient Instructions: COVID-19 (DC) ATTENDING PHYSICIAN NOTE: I was physically present as attending physician in the emergency department during the care of this patient, but I was not directly involved in the decision making or delivery of care for this patient. (SPIKE REILLY MD) Copy Copies To 1: YOGI RITCHIE MD, PETER J APRN Jul 07, 2021 13:58 SPIKE REILLY MD Jul 09, 2021 12:10
[2021-07-07 14:05] LABS: BASOPHILS % (AUTO) 0 % (0-10); EOSINOPHILS # (AUTO) 0.1 10^3/uL (0.0-0.3); EOSINOPHILS % (AUTO) 1 % (0-10); HEMATOCRIT 42 % (40-54); HEMOGLOBIN 13.9 g/dL (13.3-17.7); LYMPHOCYTES # (AUTO) 1.8 X 10^3 (1.0-4.0); LYMPHOCYTES % (AUTO) 28 % (12-44); MEAN CORPUSCULAR HEMOGLOBIN 31 pg (25-34); MEAN CORPUSCULAR HGB CONC 34 g/dL (32-36); MEAN CORPUSCULAR VOLUME 91 fL (80-99); MEAN PLATELET VOLUME 9.3 fL (9.0-12.2); MONOCYTES # (AUTO) 0.5 X 10^3 (0.0-1.0); MONOCYTES % (AUTO) 7 % (0-12); NEUTROPHILS # (AUTO) 4.2 X 10^3 (1.8-7.8); NEUTROPHILS % (AUTO) 64 % (42-75); PLATELET COUNT 277 10^3/uL (130-400); WHITE BLOOD COUNT 6.5 10^3/uL (4.3-11.0)
[2021-07-07 14:17] LABS: ALBUMIN 4.1 GM/DL (3.2-4.5)
[2021-07-07 14:18] LABS: POTASSIUM 4.2 MMOL/L (3.6-5.0); PROTHROMBIN TIME PATIENT 13.3 SEC (12.2-14.7)
[2021-07-07 14:19] LABS: CALCIUM 9.6 MG/DL (8.5-10.1)
[2021-07-07 14:20] LABS: TOTAL PROTEIN 6.8 GM/DL (6.4-8.2)
[2021-07-07 14:22] LABS: BILIRUBIN,TOTAL 0.8 MG/DL (0.1-1.0)
[2021-07-07 14:24] LABS: CREATININE SERUM 1.11 MG/DL (0.60-1.30)
[2021-07-07 14:27] LABS: MAGNESIUM 1.8 MG/DL (1.6-2.4)
--- NOTE | 2021-07-07 14:28 | Diagnostic Imaging Report ---
INDICATION: Chest pain. TIME OF EXAM: 2:10 PM Correlation is made with prior chest from 02/08/2015. The heart size is normal. The pulmonary vascularity is unremarkable. The lungs are clear. No infiltrate, effusion or pneumothorax is detected. IMPRESSION: No acute cardiopulmonary process is detected. Dictated by: Dictated on workstation # [id number]
[2021-07-07 15:12] VITALS: BP 121/82
== END 2021-07-07 15:12 | disposition home or self-care (01) ==
LOC: EDUNIT# 13:39 → ER 13:40
DX: R07.9 Chest pain, unspecified (principal); Z86.16 Personal history of COVID-19
CPT/HCPCS: 36415; 71045; 80053; 83735; 83874; 84145; 84484; 85025; 85379; 85610; 85730; 86141; 93005; 93041

== ENCOUNTER → 2021-07-28 | Outpatient (CLI) | payer OTHER | LOC: CARD 09:56 | PROVIDERS: ATTEND Internal Medicine Cardiovascular Disease | DX: I51.7 Cardiomegaly (principal) | CPT/HCPCS: 93306 ==

== ENCOUNTER → 2021-12-15 | Outpatient (CLI) | payer OTHER ==
--- NOTE | 2021-12-15 11:16 | Diagnostic Imaging Report ---
TECHNIQUE: Live grayscale and color Doppler ultrasound was performed of the neck bilaterally. COMPARISON: 12/07/2016. REASON FOR THE EXAM: Chronic enlarged lymph nodes in the neck. FINDINGS: A mildly prominent lymph node is seen in the right neck measuring 1.5 x 0.6 x 1.1 cm. In the left neck, a mildly prominent lymph node is seen measuring 1.8 x 1.0 x 1.4 cm. Nonspecific glandular tissue is seen bilaterally measuring 4.0 x 1.5 x 3.4 cm on the right and 3.6 x 1.9 x 3.1 cm on the left. These demonstrate no abnormal vascularity without internal mass. The exact location of this glandular tissue was not specifically described. IMPRESSION: 1. Mildly prominent cervical lymph nodes bilaterally. Mildly prominent lymph nodes were also present on the prior CT neck from 2017 in which the largest level 2 cervical lymph nodes measured 1.0 cm in short axis. Given the normal morphology, these are favored to be reactive. No dedicated followup is recommended unless symptoms worsen. 2. Nonspecific glandular tissue bilaterally. This was not specifically located on the exam but is most likely normal submandibular gland tissue. No evidence of mass or abnormal vascularity. Dictated by: Dictated on workstation # [id number]
== END ==
LOC: RAD 09:00
PROVIDERS: ATTEND Family Medicine
DX: R59.0 Localized enlarged lymph nodes (principal)
CPT/HCPCS: 76536

== ENCOUNTER 2022-04-30 09:17 | Emergency (ER) | payer OTHER ==
[~2022-04-30] VITALS: Ht 182.8 cm; Wt 83.9 kg
[~2022-04-30 09:17] MED LIST changes: +OMEP20TA56 PO; -OMEP20TA7 PO
[2022-04-30] MEDS ORDERED: KETOROLAC 30 MG/ML VIAL IVP STA (09:50)
--- NOTE | 2022-04-30 09:58 | ED GU-Male ---
General Chief Complaint: - Reproductive Stated Complaint: LEFT TESTICULAR PAIN Nursing Triage Note: PT AMB TO RM 7 WITH COMPLAINT OF LEFT TESTICLE PAIN. STATES PAIN STARTED YESTERDAY AROUND 2PM. DENIES INJURY. STATES IS SWOLLEN AND VEIN IS MORE PROMINENT. Source: patient History of Present Illness Date Seen by Provider: Apr 30, 2022 Time Seen by Provider: 09:44 Initial Comments PT ARRIVES VIA POV FROM HOME C/O LEFT TESTICLE PAIN SINCE 1400 YESTERDAY AFTERNOON PAIN CAME ON SUDDENLY AT WORK--PUTTING UP AND "MUDDING" SHEETROCK PAIN IS CONSTANT NO RADIATION OF PAIN LEFT TESTICLE APPEARED A LITTLE SWOLLEN THIS AM AND A VEIN ON HIS TESTICLE AREA APPEARS MORE PROMINENT HAD ALOT OF PAIN ON URINATION THIS AM, BUT NO CHANGE IN COLOR OF URINE SLIGHT NAUSEA, NO VOMITING NO FEVER NO HISTORY OF SIMILAR 3 WEEKS AGO, HE SAW DR. ARANA FOR SOME MILD PERIUMBILCAL PAIN--HAS SMALL UMBILICAL HERNIA AT SITE OF PRIOR UMBILICAL HERNIA REPAIR. HAS HAD PRIOR CHOLECYSTECTOMY IN 2006 LAST ATE 1 1/2 HOURS AGO. HAS NOT TAKEN ANYTHING FOR PAIN PCP: DR. RITCHIE SURGEON: DR. ARANA Allergies and Home Medications Allergies Coded Allergies: telithromycin (Verified Allergy, Severe, ANAPHYLAXIS, 12/03/15) cephalexin (Unverified Allergy, Unknown, 06/04/15) Patient Home Medication List Hydrocodone Bit/Acetaminophen (HYDROcodone/APAP 7.5/325 TAB) 1 Each Tablet, 1-2 TAB PO Q4H Prescribed by: MERLE ESPOSITO on 10/11/19 0840 Review of Systems Review of Systems Constitutional: no symptoms reported Respiratory: no symptoms reported Cardiovascular: no symptoms reported Gastrointestinal: see HPI Genitourinary: see HPI Musculoskeletal: no symptoms reported; No back pain Skin: no symptoms reported Psychiatric/Neurological: No Symptoms Reported Endocrine: No Symptoms Reported Hematologic/Lymphatic: No Symptoms Reported Past Gclvvwc-Ittvsf-Zvsous Hx Patient Social History Tobacco Use?: No Use of E-Cig and/or Vaping dev: No Substance use?: No Alcohol Use?: No Pt feels they are or have been: No Seasonal Allergies Seasonal Allergies: Yes Past Medical History Surgeries: Yes (UMBILICAL HERNIA REPAIR; JIA 2006) Abdominal, Gallbladder Respiratory: No Cardiac: No Neurological: No Reproductive Disorders: No Genitourinary: No Gastrointestinal: Yes (S/P UMBILICAL HERNIA REPAIR AND CHOLECYSTECTOMY) Abdominal Hernia, Gall Bladder Disease Musculoskeletal: No Endocrine: No HEENT: No Cancer: No Psychosocial: No Integumentary: No Blood Disorders: No Physical Exam Vital Signs Vital Signs - First Documented 04/30/22 09:32 Temp 36.1 Pulse 77 Resp 16 B/P (MAP) 142/95 (111) Pulse Ox 99 O2 Delivery Room Air Capillary Refill : Less Than 3 Seconds Height, Weight, BMI Height: 6'1.00" Weight: 185lbs. 0.0oz. 83.986322ua; 25.00 BMI Method:Stated General Appearance: WD/WN Cardiovascular: regular rate, rhythm, no murmur Respiratory: normal breath sounds, no respiratory distress, no accessory muscle use Gastrointestinal: soft, tenderness (MILD SUPRAPUBIC TENDERNESS AND LEFT FLANK TENDERNESS) Back: CVA tenderness (L) Extremities: normal inspection Neurologic/Psychiatric: job placement counselor II-XII nml as tested, no motor/sensory deficits, alert, normal mood/affect, oriented x 3 Skin: normal color, warm/dry; No rash Progress/Results/Core Measures Suspected Sepsis SIRS Temperature: Pulse: 77 Respiratory Rate: 16 Laboratory Tests 04/30/22 10:25: White Blood Count 3.9L Blood Pressure 142 /95 Mean: 111 Laboratory Tests 04/30/22 10:25: Creatinine 1.18, Platelet Count 241, Total Bilirubin 1.0 Results/Orders Lab Results Laboratory Tests Test 04/30/22 09:54 04/30/22 10:25 Range/Units Urine Color YELLOW Urine Clarity CLEAR Urine pH 5.5 5-9 Urine Specific Trenary >=1.030 1.016-1.022 Urine Protein NEGATIVE NEGATIVE Urine Glucose (UA) NEGATIVE NEGATIVE Urine Ketones NEGATIVE NEGATIVE Urine Nitrite NEGATIVE NEGATIVE Urine Bilirubin NEGATIVE NEGATIVE Urine Urobilinogen 0.2 < = 1.0 MG/DL Urine Leukocyte Esterase NEGATIVE NEGATIVE Urine RBC (Auto) NEGATIVE NEGATIVE Urine RBC NONE /HPF Urine WBC NONE /HPF Urine Squamous Epithelial Cells NONE /HPF Urine Crystals PRESENT H /LPF Urine Amorphous Sediment RARE NAZARIO URATES H /LPF Urine Bacteria NEGATIVE /HPF Urine Casts NONE /LPF Urine Mucus SMALL H /LPF Urine Culture Indicated NO White Blood Count 3.9 L 4.3-11.0 10^3/uL Red Blood Count 4.66 4.30-5.52 10^6/uL Hemoglobin 14.2 13.3-17.7 g/dL Hematocrit 42 40-54 % Mean Corpuscular Volume 90 80-99 fL Mean Corpuscular Hemoglobin 31 25-34 pg Mean Corpuscular Hemoglobin Concent 34 32-36 g/dL Red Cell Distribution Width 12.3 10.0-14.5 % Platelet Count 241 130-400 10^3/uL Mean Platelet Volume 9.5 9.0-12.2 fL Immature Granulocyte % (Auto) 0 % Neutrophils (%) (Auto) 52 42-75 % Lymphocytes (%) (Auto) 35 12-44 % Monocytes (%) (Auto) 11 0-12 % Eosinophils (%) (Auto) 2 0-10 % Basophils (%) (Auto) 1 0-10 % Neutrophils # (Auto) 2.0 1.8-7.8 10^3/uL Lymphocytes # (Auto) 1.4 1.0-4.0 10^3/uL Monocytes # (Auto) 0.4 0.0-1.0 10^3/uL Eosinophils # (Auto) 0.1 0.0-0.3 10^3/uL Basophils # (Auto) 0.0 0.0-0.1 10^3/uL Immature Granulocyte # (Auto) 0.0 0.0-0.1 10^3/uL Sodium Level 140 135-145 MMOL/L Potassium Level 4.2 3.6-5.0 MMOL/L Chloride Level 109 H 98-107 MMOL/L Carbon Dioxide Level 23 21-32 MMOL/L Anion Gap 8 5-14 MMOL/L Blood Urea Nitrogen 11 7-18 MG/DL Creatinine 1.18 0.60-1.30 MG/DL Estimat Glomerular Filtration Rate 80 BUN/Creatinine Ratio 9 Glucose Level 100 70-105 MG/DL Calcium Level 9.0 8.5-10.1 MG/DL Corrected Calcium 9.2 8.5-10.1 MG/DL Total Bilirubin 1.0 0.1-1.0 MG/DL Aspartate Amino Transf (AST/SGOT) 15 5-34 U/L Alanine Aminotransferase (ALT/SGPT) 14 0-55 U/L Alkaline Phosphatase 85 40-136 U/L Total Protein 6.0 L 6.4-8.2 GM/DL Albumin 3.7 3.2-4.5 GM/DL My Orders Orders - LORENZO CHRISTINE DO Ua Culture If Indicated (04/30/22 09:45) Ed Iv/Invasive Line Start (04/30/22 09:50) Cbc With Automated Diff (04/30/22 09:50) Comprehensive Metabolic Panel (04/30/22 09:50) Ketorolac Injection (Toradol Injection) (04/30/22 09:50) Ed Iv/Invasive Line Start (04/30/22 09:50) Lactated Ringers (Lr 1000 Ml Iv Solution (04/30/22 10:00) Us Scrotum (Testicle) [id number] (04/30/22 10:20) Ct Abd/Pelvis Wo(Kidney Stone) (04/30/22 11:34) Medications Given in ED Current Medications Medications Dose Ordered Sig/Ai Route Start Time Stop Time Status Last Admin Dose Admin Lactated Ringer's 1,000 ml @ 0 mls/hr Q0M ONCE IV 04/30/22 10:00 04/30/22 10:01 DC 04/30/22 10:22 0 MLS/HR Vital Signs/I&O 04/30/22 09:32 Temp 36.1 Pulse 77 Resp 16 B/P (MAP) 142/95 (111) Pulse Ox 99 O2 Delivery Room Air Capillary Refill : Less Than 3 Seconds Blood Pressure Mean: 111 Departure Impression Primary Impression: Left testicular pain Disposition: HOME, SELF-CARE Condition: Stable Departure-Patient Inst. Decision time for Depature: 12:30 Referrals: YOGI RITCHIE MD (PCP/Family) Primary Care Physician AUDI GRAHAM MD Patient Instructions: How to Perform a Testicular Self-Exam Add. Discharge Instructions: NO INTERCOURSE NO LIFTING OR STRAINING FOLLOW UP WITH DR. GRAHAM NEXT WEEK FOR FURTHER CARE--CALL TODAY TO SCHEDULE APPOINTMENT All discharge instructions reviewed with patient and/or family. Voiced understanding. Scripts Ketorolac Tromethamine (Ketorolac Tromethamine) 10 Mg Tablet 10 MG PO Q6H for Pain, #15 TAB Prov: LORENZO CHRISTINE DO 04/30/22 LORENZO CHRISTINE DO Apr 30, 2022 09:58
[2022-04-30 09:59] LABS: BILIRUBIN,URINE NEGATIVE (NEGATIVE); CLARITY,URINE CLEAR; COLOR,URINE YELLOW; GLUCOSE, URINE (UA) NEGATIVE (NEGATIVE); KETONES,URINE NEGATIVE (NEGATIVE); LEUKOCYTE ESTERASE ,URINE NEGATIVE (NEGATIVE); NITRITE,URINE NEGATIVE (NEGATIVE); PH,URINE 5.5 (5-9); PROTEIN,URINE NEGATIVE (NEGATIVE)
[2022-04-30] MEDS ORDERED: LACTATED RINGERS 1,000 ML IV ONE (10:00)
[2022-04-30 10:09] LABS: AMORPHOUS SEDIMENT,UR RARE AMOR URATES /LPF; BACTERIA,URINE NEGATIVE /HPF
[2022-04-30 10:32] LABS: BASOPHILS % (AUTO) 1 % (0-10); EOSINOPHILS # (AUTO) 0.1 10^3/uL (0.0-0.3); EOSINOPHILS % (AUTO) 2 % (0-10); HEMATOCRIT 42 % (40-54); HEMOGLOBIN 14.2 g/dL (13.3-17.7); LYMPHOCYTES # (AUTO) 1.4 10^3/uL (1.0-4.0); LYMPHOCYTES % (AUTO) 35 % (12-44); MEAN CORPUSCULAR HEMOGLOBIN 31 pg (25-34); MEAN CORPUSCULAR HGB CONC 34 g/dL (32-36); MEAN CORPUSCULAR VOLUME 90 fL (80-99); MEAN PLATELET VOLUME 9.5 fL (9.0-12.2); MONOCYTES # (AUTO) 0.4 10^3/uL (0.0-1.0); MONOCYTES % (AUTO) 11 % (0-12); NEUTROPHILS % (AUTO) 52 % (42-75); PLATELET COUNT 241 10^3/uL (130-400); WHITE BLOOD COUNT 3.9 10^3/uL (4.3-11.0)
[2022-04-30 11:09] LABS: ALBUMIN 3.7 GM/DL (3.2-4.5); POTASSIUM 4.2 MMOL/L (3.6-5.0)
[2022-04-30 11:15] LABS: CREATININE SERUM 1.18 MG/DL (0.60-1.30)
--- NOTE | 2022-04-30 11:33 | Diagnostic Imaging Report ---
PROCEDURE: US Scrotum. TECHNIQUE: Multiple real-time grayscale images were obtained over the scrotum in various projections bilaterally. INDICATION: Left scrotal pain. FINDINGS: Color Doppler blood flow to the bilateral testicles was normal. There were no findings of torsion or orchitis. There is no evidence for epididymitis. Epididymides appeared normal bilaterally. This patient has small simple bilateral hydroceles without complexity. No hernia identified. There is a small left-sided varicocele. IMPRESSION: Unremarkable scrotal Doppler ultrasound showed no evidence for torsion, orchitis or epididymitis. Tiny bilateral hydroceles and a small left varicocele noted. No visualized hernia. Dictated by: Dictated on workstation # [id number]
--- NOTE | 2022-04-30 12:16 | Diagnostic Imaging Report ---
PROCEDURE: CT urinary tract, rule out kidney stone. TECHNIQUE: Multiple contiguous axial images were obtained through the abdomen and pelvis without the use of intravenous contrast. Auto Exposure Controls were utilized during the CT exam to meet ALARA standards for radiation dose reduction. INDICATION: Left testicular pain. Comparison is made with prior CT from 06/04/2015. The lung bases are clear. The liver is unremarkable. Gallbladder surgically absent. There is no biliary duct dilatation. The pancreas and spleen are unremarkable. No adrenal mass is detected. No renal calculi are identified. No definite ureteral calculi or hydronephrosis is seen. There are no bladder calculi detected. Aorta is nonaneurysmal. Bowel loops are normal caliber. No inflammatory changes are seen. No free fluid or fluid collection. Prostate is unremarkable. Bony structures are nonacute. IMPRESSION: Unremarkable noncontrast CT of the abdomen and pelvis. There is no evidence of urinary tract calculi or obstruction. Dictated by: Dictated on workstation # [id number]
[2022-04-30] MEDS ORDERED: KETO10TA PO (12:33)
[2022-04-30 12:42] VITALS: BP 135/84
== END 2022-04-30 12:42 | disposition home or self-care (01) ==
LOC: EDUNIT# 09:17 → ER 09:21
DX: N50.812 Left testicular pain (principal)
CPT/HCPCS: 36415; 74176; 76870; 80053; 81000; 85025

== ENCOUNTER → 2023-01-21 | Outpatient (CLI) | payer OTHER ==
[~2023-01-21] MED LIST changes: +CATHETER FLUSH 10 ML SYR IVP PRN; +KETO10TA PO
[2023-01-21 08:00] VITALS: BP 207/78
--- NOTE | 2023-01-22 14:41 | Cardiology Stress Test Report ---
Stress Test Report Date of Procedure/Referring: Date of Procedure: January 21, 2023 PCP Debora Jarquin,Dnp Admitting Physician Admitting Physician: Attending Physician: Sahil Jarquin DO Indications: R07.89 Atypical chest pain Baseline Blood Pressure: Blood Pressure Systolic: 207 Blood Pressure Diastolic: 78 Baseline EKG: Baseline EKG: Sinus rhythm with no acute ST-T wave abnormalities. Summary/Conclusion: Summary: treadmill stress test Resting 10.25 mci myoview stress 30.2 mci myoview No perfusion defect during rest or exercise. Normal wall motion with EF 58% TID 0.94 Conclusion: 1. No perfusion defect during rest or exercise; no evidence of ischemia or infarct. 2. Normal wall motion and LVEF. 3. Stress treadmill report by Dr. Jarquin. Copy Copies To 1: SAHIL JARQUIN M RIZWAN MD January 22, 2023 14:41
== END ==
LOC: CARD 07:15
PROVIDERS: ATTEND Internal Medicine
DX: R07.89 Other chest pain (principal)
CPT/HCPCS: 78452; 93017; A9502